=== PATIENT | male | born 1995 | race Caucasian/White ===

== ENCOUNTER 2017-10-14 20:33 | Emergency (ER) | payer SELFPAY ==
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
[2017-10-14] MEDS ORDERED: SERT-1 PO (20:41)
[2017-10-14 20:45] VITALS: BP 144/78
[2017-10-14 21:16] LABS: PLATELET COUNT, AUTOMATED 258 K/uL (150-450)
--- NOTE | 2017-10-14 22:16 | EKG ---
FACILITY: [facility] PATIENT NAME: MICHELLE VALENTINE : [id number] MR: [id number] V: [id number] EXAM DATE: ORDERING PHYSICIAN: ESTRELLA DE LEON TECHNOLOGIST: Bladimir Martinez Reason : Blood Pressure : / mmHG Vent. Rate : 093 BPM Atrial Rate : 093 BPM P-R Int : 136 ms QRS Dur : 100 ms QT Int : 348 ms P-R-T Axes : 049 046 051 degrees QTc Int : 432 ms Normal sinus rhythm NoO ST-T abnormalities No previous ECGs available Confirmed by JENIFER MORALES ([id number]) on 10/15/2017 4:54:17 AM Referred By: Confirmed By:JENIFER MORALES
== END 2017-10-14 21:56 ==
LOC: ER 20:39
DX: F10.20 Alcohol dependence, uncomplicated (principal); R45.851 Suicidal ideations; F32.9 Major depressive disorder, single episode, unspecified
CPT/HCPCS: 80305; 80320; 80329; 81001; 82040; 82247; 82310; 82374; 82435; 82565; 82947; 83735; 84075; 84132; 84155; 84295; 84443; 84450; 84460; 84520; 85025; 93005; 99285

== ENCOUNTER 2017-10-14 21:40 | Inpatient (IN) | payer SELFPAY ==
[~2017-10-14] VITALS: Ht 190.5 cm; Wt 110.2 kg
[~2017-10-14 21:40] MED LIST: SERT-1 PO
[2017-10-14 22:15] VITALS: BP 146/98
[2017-10-14] MEDS ORDERED: DIAZEPAM 10 MG TAB PO PRN (22:30)
[2017-10-14] MEDS: DIAZEPAM 10 MG TAB PO PRN (23:26)
[2017-10-15] MEDS: DIAZEPAM 10 MG TAB PO PRN ×6 (00:44→13:54)
[2017-10-15 06:10] VITALS: BP 131/74
[2017-10-15] MEDS: MULTIVITAMINS TAB PO SCH (08:05)
[2017-10-15] MEDS: NICOTINE INH SYSTEM 10 MG/INH INH PRN (08:05)
[2017-10-15] MEDS ORDERED: NICOTINE CARTRIDGE 1 EA PO PRN (08:05)
[2017-10-15] MEDS: SERTRALINE HCL 50 MG TAB PO SCH (08:06)
[2017-10-15 10:10] VITALS: BP 127/104
[2017-10-15 11:25] VITALS: BP 128/84
[2017-10-15 15:00] VITALS: BP 120/60
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
[2017-10-15 18:20] VITALS: BP 121/83
[2017-10-15 23:37] VITALS: BP 126/76
[2017-10-16 06:06] VITALS: BP 121/84
[2017-10-16] MEDS ORDERED: IBUPROFEN 600 MG TAB PO PRN (07:50)
[2017-10-16] MEDS: MULTIVITAMINS TAB PO SCH (08:07)
[2017-10-16] MEDS: SERTRALINE HCL 50 MG TAB PO SCH (08:07)
[2017-10-16] MEDS: NICOTINE INH SYSTEM 10 MG/INH INH PRN (08:50)
[2017-10-16] MEDS: DIAZEPAM 10 MG TAB PO PRN ×2 (08:51→18:01)
[2017-10-16 10:55] VITALS: BP 140/81
--- NOTE | 2017-10-16 11:01 | BHS Progress Note ---
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 Denies anxiety and/or anger Last suicidal ideation Wednesday Not working or taking classes Cannabis Use Disorder, severe, reports cannabis drug of choice Legal: 3 felonies as minor, possession, intent to sell, assault w/deadly weapon, dropped as on diversion Unsupervised probation for next week Court Oct 18 charges for blood alcohol in minor First court missed due to working Never been in detention Last substance use - Wednesday Opiates and sedatives History of IV Dilaudid use last month Suicidal Ideation: None Homicidal Ideation: None [facility] - Objective Physical Exam Muscle Strength and Tone: WNL Gait and Station: Steady [facility] Medications Reviewed: Side Effects, Benefits of Medication, Risks Mental Status Exam General Appearance: Casual, Well Groomed, Good Eye Contact, Cooperative, Polite , Good Interaction Speech: Clear, Spontaneous, Normal Rate, Normal Rhythm, Normal Volume, Normal Tone Mood: Dysthmic/Depressed Affect: Full and Appropriate, Calm Thought Process: Organized, Logical, Goal Directed, No Loose Associations, No Flight of Ideas Thought Content: No Suicidal Ideation, No Homicidal Ideation, No Delusions, No Auditory Halllucinations, No Visual Hallucinations, No Thought Broadcasting, No Ideas of Reference, No Obsessions, No Compulsions, Other ("I'm hopeless.") Cognition: Alert & Oriented-Person, Alert & Oriented-Place, Alert & Oriented- Time, Zlgoz-[id number]-Fancycaeh Memory: Immediate, Recent, Remote Intelligence: Average Insight Judgment: Intact, Appropriate Lab Vital Signs Date Time Temp Pulse Resp B/P (MAP) Pulse Ox O2 Delivery O2 Flow Rate FiO2 10/16/17 06:06 98.0 71 121/84 (96) 96 Room Air 10/15/17 18:20 14 Allergies Coded Allergies No Known Drug Allergies (Unverified10/14/17) S Assessment and Plan [id number] Encounter Date: Oct 16, 2017 Uvfe-[id number] Encounter Time: 10:15 [facility] Plan: Admit to Unit, Necessary Precautions, Individual/Group Therapy Problems: (1) Alcohol use disorder, severe, dependence Status: Chronic (2) Opioid use disorder, severe, dependence Status: Chronic (3) Cannabis use disorder, severe, dependence Status: Chronic (4) Polysubstance abuse Status: Chronic (5) Alcohol dependence Status: Chronic (6) Depression with suicidal ideation Status: Chronic Condition Continue [facility]WA protocol for withdrawal symptoms Residential substance abuse program encouraged, declines option, lengthy discussion about outpatient substance abuse therapy options Maintain precautions VINCENT PFEIFFER NP Oct 16, 2017 11:01
[2017-10-16 15:15] VITALS: BP 126/80
[2017-10-16 17:33] VITALS: BP 108/78
[2017-10-16] MEDS ORDERED: ONDANSETRON 4 MG ODT TABDP SL ONE (17:35)
[2017-10-16 21:01] VITALS: BP 111/85
[2017-10-16] MEDS ORDERED: MELATONIN 3 MG TAB PO PRN (21:50)
[2017-10-17 05:45] VITALS: BP 133/62
[2017-10-17] MEDS: SERTRALINE HCL 50 MG TAB PO SCH (07:58)
[2017-10-17] MEDS: MULTIVITAMINS TAB PO SCH (07:58)
--- NOTE | 2017-10-17 11:41 | BHS Progress Note ---
[facility] - Subjective Progress Notes Subjective "I'm feeling pretty good today. 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, encouraged to follow up with medical once released Plans to go to [facility] - mother plans to provide transportation to go to program Suicidal Ideation: None Homicidal Ideation: None [facility] - Objective Physical Exam Muscle Strength and Tone: WNL Gait and Station: Steady [facility] Medications Reviewed: Side Effects, Benefits of Medication, Risks Mental Status Exam General Appearance: Casual, Well Groomed, Good Eye Contact, Cooperative, Polite , Good Interaction Speech: Clear, Spontaneous, Normal Rate, Normal Rhythm, Normal Volume, Normal Tone Mood: No Dysthmic/Depressed, Euthymic Affect: Full and Appropriate, Calm Thought Process: Organized, Logical, Goal Directed, No Loose Associations, No Flight of Ideas Thought Content: No Suicidal Ideation, No Homicidal Ideation, No Delusions, No Auditory Halllucinations, No Visual Hallucinations, No Thought Broadcasting, No Ideas of Reference, No Obsessions, No Compulsions, No Other Cognition: Alert & Oriented-Person, Alert & Oriented-Place, Alert & Oriented- Time, Fasvg-Qvrrvndp-Cjctfrrul Memory: Immediate, Recent, Remote Intelligence: Average Insight Judgment: Intact, Appropriate Lab Vital Signs Date Time Temp Pulse Resp B/P (MAP) Pulse Ox O2 Delivery O2 Flow Rate FiO2 10/17/17 05:45 98.4 65 133/62 (85) 93 Room Air 10/16/17 15:15 14 Allergies Coded Allergies No Known Drug Allergies (Unverified10/14/17) [facility] Assessment and Plan Focy-ii-Fwgi Encounter Date: Oct 17, 2017 Strj-qo-Arlc Encounter Time: 11:45 [facility] Plan: Admit to Unit, Necessary Precautions, Individual/Group Therapy Problems: (1) Alcohol use disorder, severe, dependence Status: Chronic (2) Opioid use disorder, severe, dependence Status: Chronic (3) Cannabis use disorder, severe, dependence Status: Chronic (4) Polysubstance abuse Status: Chronic (5) Depression with suicidal ideation Status: Resolved Condition Continue current medications and treatment Ongoing discharge planning Continue CIWA protocol, CIWA = 0 Discussion about inpatient treatment once discharged VINCENT PFEIFFER NP Oct 17, 2017 11:41
[2017-10-17 13:57] VITALS: BP 129/93
[2017-10-17] MEDS: NICOTINE INH SYSTEM 10 MG/INH INH PRN (19:17)
[2017-10-17 22:30] VITALS: BP 125/80
[2017-10-18 06:36] VITALS: BP 120/60
[2017-10-18] MEDS: SERTRALINE HCL 50 MG TAB PO SCH (08:20)
[2017-10-18] MEDS: MULTIVITAMINS TAB PO SCH (08:20)
[2017-10-18] MEDS ORDERED: OMEGA-3 500 MG CAP PO SCH (09:00)
[2017-10-18] MEDS ORDERED: MULT-1121 PO (09:52)
[2017-10-18] MEDS ORDERED: OMEG-11 PO (09:52)
[2017-10-18] MEDS ORDERED: MELA3TAB31 PO (09:54)
[2017-10-18] MEDS ORDERED: IBUP600T22 PO (09:54)
[2017-10-18] MEDS ORDERED: NIC10R INH (09:55)
--- NOTE | 2017-10-19 17:41 | DISCHARGE SUMMARY ---
FINAL DIAGNOSES PER DSM-V Hypnotic use disorder severe. Opiate use disorder severe. Alcohol use disorder severe. Cannabis use disorder. Substance-induced mood disorder that had resolved. Rule out underlying depression. Also benzodiazepine withdrawal and alcohol withdrawal have been completed to completion. Patient having supportive family members. This patient was seen on the morning of October 18, 2017 at approximately 0900 hours for this note. REASON FOR ADMISSION Please see H and P for full details. This is a pleasant 22-year-old male who was entering a rehab program in [facility]. Again, please see H and P for full details. Patient was thought to be suffering from ongoing alcohol and benzodiazepine withdrawal. He traveled to [place] by private vehicle. Patient was seen in the emergency room, cleared for admission to [facility] where diazepam per [facility] protocol was administered until alcohol and benzodiazepine withdrawal could be considered complete. This again was treated to completion. It was considered moderate in nature. Patient's mood continued to improve in the absence of substance use. Patient was reflecting on future life goals, took an active role in his treatment. Patient continued to improve and patient was discharged to return to [facility] and pursue rehab for polysubstance dependence. PHYSICAL EXAMINATION GENERAL: Please see emergency room note. Notable for a 22-year-old male in no acute medical distress. VITAL SIGNS: At the time of admission, temperature 97.0, pulse 109, respiratory rate 20, blood pressure 144/78, pulse oximetry 95 on room air. EKG was unremarkable overall at the time of admission. Vital signs at the time of discharge from [facility] Unit showed temperature 98.6, pulse 46. Patient showing no acute symptomatology of bradycardia. Respiratory rate 15, blood pressure 120/60, pulse oximetry 95 on room air. LABORATORY DATA Free T4 was still pending at the time of dictation. Free T3 in normal limits at 2.5. TSH elevated at 8.08 upon admission. CBC otherwise unremarkable. CMP unremarkable at the time of admission. Toxicology was positive for cannabis and positive for benzodiazepines at the time of admission. Patient is known to have been treated with benzodiazepines prior to arrival at [facility]. Serum alcohol nondetectable at the time of admission. Urinalysis unremarkable. MENTAL STATUS EXAMINATION GENERAL APPEARANCE, BEHAVIOR AND ATTITUDE: This is a polite, cooperative 22- year-old male making good eye contact. No psychomotor agitation or retardation. No bizarre mannerisms or tics. No periods of tearfulness. SPEECH: Within normal limits, regular rate, rhythm volume and tone. MOOD: Described as good. AFFECT: Full and bright. THOUGHT PROCESSES: Logical, goal directed. No loose associations or flight of ideas. THOUGHT CONTENT: Free of auditory or visual hallucinations, ideas of reference , thought broadcastings, delusions, obsessions, compulsions. Negative for any suicidal or homicidal ideation. SENSORIUM: Clear. COGNITION: Alert and oriented to person, place, time and situation. MEMORY: Immediate, recent and remote estimated intact. INTELLIGENCE: Average based on interview. INSIGHT AND JUDGMENT: Considered grossly intact in the absence of illicit substance use or alcohol use. RESULTS OF TESTING IMAGING: None. LABORATORY DATA: See above. CONSULTATIONS: None. TREATMENT Patient received medications, participated in individual and group therapy. HOSPITAL COURSE Patient's withdrawal was treated to completion with diazepam per [facility] protocol. Patient was very cooperative and compliant with treatment. Withdrawal was considered moderate in nature and patient took an active role in his treatment and future planning goals. CONDITION OF PATIENT ON DISCHARGE Stable. Considered minimal risk to himself or others and appropriate for outpatient care. DISPOSITION Patient discharged to home in [place]. Patient would re-enter [facility] for further treatment of significant polysubstance use disorder. Patient would abstain from all illicit substances and alcohol. He would enter the social detox program on arrival in [place]. Crisis line was given should symptoms return. Patient would remain on Zoloft 50 mg q.a.m., which patient has at home. Patient would take melatonin as needed over the counter for sleep disturbance, multivitamin with mineral daily, Motrin 600 mg every six hours p.r.n. for pain. Patient encouraged to stop smoking nicotine as well and was encouraged to continue [id number] nicotine replacement therapy. Patient was also encouraged to take [place]-3 fish oil 1000 mg daily. Risks, benefits and alternatives of the above discharge plan were discussed. Informed consent was given to proceed with above discharge plan by this competent patient and patient's mother via phone. MARIYA
== END 2017-10-18 11:19 | disposition home or self-care (01) | DRG 897 ==
LOC: BHS 21:40
PROVIDERS: ADMIT Nurse Practitioner Psychiatric/Mental Health; ATTEND Nurse Practitioner Psychiatric/Mental Health
DX: F10.230 Alcohol dependence with withdrawal, uncomplicated (principal); F11.20 Opioid dependence, uncomplicated; R45.851 Suicidal ideations; F13.230 Sedative, hypnotic or anxiolytic dependence with withdrawal, uncomplicated; F12.20 Cannabis dependence, uncomplicated; F32.9 Major depressive disorder, single episode, unspecified; F17.210 Nicotine dependence, cigarettes, uncomplicated; F10.24 Alcohol dependence with alcohol-induced mood disorder; Y90.0 Blood alcohol level of less than 20 mg/100 ml; Z62.810 Personal history of physical and sexual abuse in childhood; Z91.5 Personal history of self-harm; Z56.0 Unemployment, unspecified; Z81.8 Family history of other mental and behavioral disorders; Z81.1 Family history of alcohol abuse and dependence; Z81.3 Family history of other psychoactive substance abuse and dependence; Z59.0 Homelessness
CPT/HCPCS: 36415; 84439; 84481; 90853; S0119